=== PATIENT | female | born 1970 | race Caucasian/White ===

== ENCOUNTER 2017-10-10 17:23 | Emergency (ER) | payer SELFPAY ==
[2017-10-10 17:37] VITALS: BP 153/92
--- NOTE | 2017-10-10 17:41 | ED Physician Documentation ---
Sore Throat/Dental Pain - HISTORIAN Historian: patient - HPI Stated Complaint: dental pain Chief Complaint: Dental Pain Additional Information: onset yest u. lt dental pain now abscess tooth 1 had prev abscess this area required extraction Onset: days ago (1) Context: Abscess Associated Symptoms: fever, chills, severe Worsened By: heat, cold - ROS CONST: no problems. denies: recent illness, eye redness CVS/RESP: none. denies: chest pain, shortness of breath GI/: denies: nausea, vomiting NEURO/PSYCH: none - PAST HX Past History: none Other History: none Allergies/Adverse Reactions: Allergies Allergy/AdvReac Type Severity Reaction Status Date / Time No Known Allergies Allergy Verified 10/10/17 17:37 - SOCIAL HX Smoking History: cigarettes Alcohol Use: occasionally Drug Use: none - FAMILY HX Family History: No - VITAL SIGNS Vital Signs: Vital Signs Temp Pulse Resp BP Pulse Ox 98.2 F 94 H 18 153/92 97 10/10/17 17:23 10/10/17 17:23 10/10/17 17:23 10/10/17 17:23 10/10/17 17:23 - REVIEWED ASSESSMENTS Nursing Assessment Reviewed: Yes Vitals Reviewed: Yes Dental Pain Physical Exam - EXAM General Appearance: moderate distress Head/Neck: head nml inspection, trachea midline, no lymphadenopathy, maxillary swelling (R), cervical lymphadenopathy, anterior Mouth/Throat: pharynx nml, voice nml. No: gums nml Ear/Nose: nml inspection (ear wax lt ear prev rupt tm dec hearing since) Respiratory: no resp. distress, breath sounds nml. No: respiratory distress CVS: reg. rate & rhythm, heart sounds nml Abdomen: soft, non-tender Extremities: non-tender, nml ROM Skin: warm/dry, normal color. No: cyanosis, diaphoresis, jaundice Neuro/Psych: No: weakness, numbness Discharge Clincal Impression: dental abscess tooth #1 Referrals: Primary Doctor,No [Primary Care Provider] - 2 Days Comments: meds see sentist mon antibiotics plus vicodin Condition: Good Disposition: 01 HOME, SELF-CARE Decision to Admit: NO Decision Time: 17:46
== END 2017-10-10 17:41 | disposition home or self-care (01) ==
LOC: ED 17:23
DX: K04.7 Periapical abscess without sinus (principal)
CPT/HCPCS: 99282

== ENCOUNTER 2018-06-11 18:20 | Emergency (ER) | payer SELFPAY ==
[2018-06-11] MEDS ORDERED: 0.9 % SODIUM CHLORIDE 1,000 ML IV ONE (18:41)
[2018-06-11] MEDS ORDERED: fentaNYL CITRATE/PF 100 MCG/2 ML INJ. IVP ONE (18:42)
[2018-06-11 19:17] LABS: eGFR (Non-African) > 60
[2018-06-11 19:19] LABS: MEAN CORPUSCULAR HEMOGLOBIN 32.2 pg (28.0-34.0)
[2018-06-11 19:20] LABS: BASOPHILS % 0.7 (0.0-1.5); EOSINOPHILS % 3.1 % (0.0-6.8); MONOCYTES % 5.3 % (0.0-11.0); NEUTROPHILS # 6.8 # k/uL (1.4-7.7)
--- NOTE | 2018-06-11 19:27 | ED Physician Documentation ---
Abdominal Pain - HISTORIAN Historian: patient - HPI Stated Complaint: RLQ abdominal pain Chief Complaint: Abdominal Pain Additonal Information: Patient presents to ED with a 4 hour history of RLQ pain. Patient states the pain began about 1600 today at work. She states she had eaten a piece of pizza and her symptoms began after that. She states the pain is 8/10 crampy, radiating to her right hip/buttock. She denies fever, chills, nausea, vomiting, or diarrhea. Onset: hours (4) Duration: constant Timing: still present Context: denies: out of country travel, bad food Severity: severe Quality: cramping Associated Symptoms: denies: fever, chills, nausea, vomiting, diarrhea Exacerbated by: supine Relieved by: remaining still Further Comments: no - ROS CONST: denies: recent illness GI/: denies: constipation CVS/RESP: denies: shortness of breath EYES/ENT: denies: problems with vision MS/SKIN/LYMPH: denies: joint pain NEURO/PSYCH: denies: headache - SOCIAL HX Smoking History: non-smoker Alcohol Use: none Drug Use: none - FAMILY HX Family History: none - PAST HX Past History: none Ischemic Bowel Risk Factors: none Other History: none Surgeries/Procedures: none Home Medications: Ambulatory Orders Medication Instructions Recorded HYDROcodone /APAP 5/325 [Jewell 1 each PO Q4 PRN #20 tablet 06/11/18 5/325] Allergies/Adverse Reactions: Allergies Allergy/AdvReac Type Severity Reaction Status Date / Time No Known Allergies Allergy Verified 10/10/17 17:37 - VITAL SIGNS Vital Signs: Vital Signs Temp Pulse Resp BP Pulse Ox 98.4 F 70 26 H 158/95 96 06/11/18 19:16 06/11/18 19:16 06/11/18 19:16 06/11/18 19:16 06/11/18 19:16 - REVIEWED ASSESSMENTS Nursing Assessment Reviewed: Yes Vitals Reviewed: Yes Progress - Results/Orders Results/Orders: UA - negative ED Results Lab/Radiology - Lab Results Lab Results: Lab Results 06/11/18 06/11/18 18:40 18:40 WBC 9.70 K/ul K/ul (4.00-12.00) RBC 4.90 M/ul M/ul (3.90-5.20) Hgb 15.8 g/dL g/dL (12.0-16.0) Hct 47.1 % H % (34.5-46.5) MCV 96.0 fl fl (80.0-100.0) MCH 32.2 pg pg (28.0-34.0) MCHC 33.5 g/dL g/dL (30.0-36.0) RDW 12.3 % % (11.3-14.3) Plt Count 179 K/mm3 K/mm3 (130-400) Neut % (Auto) 70.1 % % (39.0-79.0) Lymph % (Auto) 20.8 % % (16.0-50.0) Sanborn % (Auto) 5.3 % % (0.0-11.0) Eos % (Auto) 3.1 % % (0.0-6.8) Baso % (Auto) 0.7 (0.0-1.5) Neut # (Auto) 6.8 # k/uL # k/uL (1.4-7.7) Lymph # (Auto) 2.0 # k/uL # k/uL (0.6-4.0) Sanborn # (Auto) 0.5 # k/uL # k/uL (0.0-0.9) Eos # (Auto) 0.3 # k/uL # k/uL (0.0-0.6) Baso # (Auto) 0.1 # k/uL # k/uL (0.0-0.5) Sodium 144 mmol/L mmol/L (136-145) Potassium 4.4 mmol/L mmol/L (3.5-5.1) Chloride 107 mmol/L mmol/L (98-107) Carbon Dioxide 27 mmol/L mmol/L (22-30) BUN 10 mg/dL mg/dL (7-17) Creatinine 0.68 mg/dL mg/dL (0.52-1.04) Est GFR ( Amer) > 60 (60 - ) Est GFR (Non-Af Amer) > 60 (60 - ) Glucose 101 mg/dL mg/dL (74-106) Calcium 9.0 mg/dL mg/dL (8.4-10.2) Total Bilirubin 0.3 mg/dL mg/dL (0.2-1.3) AST 28 U/L U/L (15-46) ALT 18 U/L U/L (13-69) Alkaline Phosphatase 73 U/L U/L (38-126) Total Protein 7.2 g/dL g/dL (6.3-8.2) Albumin 4.3 g/dL g/dL (3.5-5.0) - Radiology Radiology Impressions: Report Submission Date: Jun 11, 2018 7:46:08 PM WATER SANDER Patient Study Name: LEXI LOPEZ Date: Jun 11, 2018 7:11:22 PM WATER SANDER Modality Type: CT\SR Gender: F Description: CT ABD PELVIS W/ CON : 68 Institution: [facility] Physician: RENEE FELIZ CT abdomen and pelvis with contrast Date of study: June 11, 2018 CLINICAL HISTORY: RLQ pain x1 day (Hx) / ITS.REASON RLQ pain Note time : 06/11/2018 8:28:04 PM User : Emilia Rodriguez RLQ pain x1 day (DICOM Hx) TECHNIQUE: 5 mm contiguous axial images of the abdomen and pelvis with IV contrast. With; 95mL's Omni 350 FINDINGS: The liver gallbladder spleen and adrenal glands are unremarkable. The pancreas is within normal limits. Kidneys enhance normally. Aortoiliac vascular calcification is present. A midline hernia contains only fat. The appendix is normal. There is a dense 4 cm left pelvic lesion possibly a hemorrhagic cyst. The bladder is unremarkable. Lumbar spondylosis is present. IMPRESSION: 4 cm dense left pelvic lesion possibly a hemorrhagic cyst or an solid lesion. Ultrasound is recommended Lumbar spondylosis. Midline hernia containing fat above the umbilicus Aortoiliac vascular calcification Negative appendix Electronically signed on Jun 11, 2018 7:46:08 PM WATER SANDER by: Jone Fine - Orders Orders: ED Orders Category Date Time Status Place IV Lock 1T Care 06/11/18 18:[address] ABD & PELVIS W & W/O CON Stat Exams 06/11/[address] ABD & PELVIS W/ CON Stat Exams 06/11/[address] ABD & PELVIS W/ CON Stat Exams 06/11/18 Stop Req CBC/PLATELET/DIFF Routine Lab 06/11/18 18:40 Completed CMP Routine Lab 06/11/18 18:40 Completed UA W/MICRO IF INDICATED Routine Lab 06/11/18 18:32 Ordered 0.9 % Sodium Chloride [Normal Saline] 1,000 ml Med 06/11/18 18:41 Discontinued IV Q1H fentaNYL CITRATE/PF [Sublimaze] Med 06/11/18 18:42 Discontinued 50 mcg IVP NOW ONE Abdominal Pain Physical Exam - Physical Exam General Appearance: mild distress EENT: SHEILA NECK: supple RESPIRATORY: no resp distress, chest non-tender, breath sounds normal CVS: reg rate & rhythm, heart sounds normal ABDOMEN: soft, normal bowel sounds, tenderness (RLQ) BACK: normal inspection, no CVA tenderness SKIN: warm/dry, normal color EXTREMITIES: non-tender, no edema NEURO: oriented X3 Vital Signs: Vital Signs Temp Pulse Resp BP Pulse Ox 98.4 F 70 26 H 158/95 96 06/11/18 19:16 06/11/18 19:16 06/11/18 19:16 06/11/18 19:16 06/11/18 19:16 Discharge Clincal Impression: Pelvic mass in female Prescriptions: HYDROcodone /APAP 5/325 [Jewell 5/325] 1 each PO Q4 PRN #20 tablet PRN Reason: Pain Referrals: Primary Doctor,No [Primary Care Provider] - 2 Days Additional Instructions: 1. Return on Thursday06/15/18 for US Pelvis 2. Call [phone] for an appointment at the Clinic. First available appointment to review US results 3. Jewell for pain as needed. You may add Ibuprofen for better pain control 4. Return to ER for new or worsening symptoms. Condition: Stable Disposition: 01 HOME, SELF-CARE Decision to Admit: NO Date of Decison to Admit: 06/11/18 Decision Time: 20:08
[2018-06-11] MEDS ORDERED: HYDROcodone /APAP 10/325 1 EACH TABLET PO ONE (20:20)
[2018-06-11 21:17] VITALS: BP 166/83
[2018-06-11 21:54] LABS: APPEARANCE,URINE CLEAR (CLEAR); COLOR,URINE YELLOW (YELLOW); OCCULT BLOOD,URINE TRACE-INTACT (NEGATIVE); UROBILINOGEN URINE 0.2 Eu (0.2-1.0)
--- NOTE | 2018-06-12 06:33 | Diagnostic Imaging Report ---
RENEE FELIZ [facility] [address] [facility] [address] [place], [place]. [address] Report Submission Date: Jun 11, 2018 7:46:08 PM LIGHT RAIL TRANSIT OPERATOR Patient Study Name: LEXI LOPEZ Date: Jun 11, 2018 7:11:22 PM LIGHT RAIL TRANSIT OPERATOR Modality Type: CT\SR Gender: F Description: CT ABD PELVIS W/ CON : 68 Institution: [facility] Physician: RENEE FELIZ CT abdomen and pelvis with contrast Date of study: June 11, 2018 CLINICAL HISTORY: RLQ pain x1 day (Hx) / ITS.REASON RLQ pain Note time : 06/11/2018 8:28:04 PM User : Emilia Rodriguez RLQ pain x1 day (DICOM Hx) TECHNIQUE: 5 mm contiguous axial images of the abdomen and pelvis with IV contrast. With; 95mL's Omni 350 FINDINGS: The liver gallbladder spleen and adrenal glands are unremarkable. The pancreas is within normal limits. Kidneys enhance normally. Aortoiliac vascular calcification is present. A midline hernia contains only fat. The appendix is normal. There is a dense 4 cm left pelvic lesion possibly a hemorrhagic cyst. The bladder is unremarkable. Lumbar spondylosis is present. IMPRESSION: 4 cm dense left pelvic lesion possibly a hemorrhagic cyst or an solid lesion. Ultrasound is recommended Lumbar spondylosis. Midline hernia containing fat above the umbilicus Aortoiliac vascular calcification Negative appendix Electronically signed on Jun 11, 2018 7:46:08 PM LIGHT RAIL TRANSIT OPERATOR by: Jone Fine [facility]
== END 2018-06-11 20:40 | disposition home or self-care (01) ==
LOC: ED 18:20
DX: R19.00 Intra-abdominal and pelvic swelling, mass and lump, unspecified site (principal)
CPT/HCPCS: 36415; 74177; 80053; 81002; 85025; 96374; 99283; 99284; J3010; J7030; Q9967; S1016